=== PATIENT | male | born 1990 | race African-American/Black ===

== ENCOUNTER 2022-03-02 10:50 | Emergency (ER) | payer SELFPAY ==
[~2022-03-02] VITALS: Ht 182.9 cm; Wt 72.6 kg
[2022-03-02] MEDS ORDERED: NAPROXEN 500 MG TABLET PO SCH (11:30)
[2022-03-02] MEDS ORDERED: CYCLOBENZAPRINE 10 MG TABLET PO ONE (11:30)
[2022-03-02] MEDS ORDERED: CYCLOBENZAPRINE 10 MG TABLET ONE (11:34)
[2022-03-02] MEDS ORDERED: NAPROXEN 250 MG TABLET ONE (11:35)
--- NOTE | 2022-03-02 13:38 | NUR ---
Patient discharged to home in stable condition. Written and verbal after care instructions given. Patient verbalizes understanding of instruction.OK RASHI PANTOJA
[2022-03-02 13:46] VITALS: BP 127/77
--- NOTE | 2022-03-02 13:46 | NUR ---
patient left via ambulatory with steady gait accompanied by [employer] in no distress going back to correction.
== END 2022-03-02 13:46 | disposition home or self-care (01) ==
LOC: ER 12:35
DX: S13.4XXA Sprain of ligaments of cervical spine, initial encounter (principal); S20.212A Contusion of left front wall of thorax, initial encounter; X58.XXXA Exposure to other specified factors, initial encounter; Y93.89 Activity, other specified; Y92.89 Other specified places as the place of occurrence of the external cause; Y99.8 Other external cause status
CPT/HCPCS: 71100-TC